=== PATIENT | male | born 1970 | race Caucasian/White ===

== ENCOUNTER → 2022-01-24 | Day surgery (SDC) | payer OTHER ==
[~2022-01-24] VITALS: Ht 172.7 cm; Wt 74.8 kg
[~2022-01-24] MED LIST: LIPITOR40 MG PO; TOPROL XL200 MG PO
[2022-01-24 07:12] LABS: BASOPHIL 0.5 % (0-2); EOSINOPHIL 1.9 % (0-5); HCT 46.5 % (42.0-52.0); LYMPHOCYTE 32.9 % (15-48); MCH 29.8 pg (25.0-31.0); MCHC 34.4 g/dL (32.0-36.0); MCV 86.6 fL (78.0-100.0); MONOCYTE 4.3 % (0-12); MPV 9.5 fL (6.0-9.5); NEUTROPHIL 60.1 % (41-80); NRBC 0; PLT 98 K/uL (150-400); RBC 5.37 M/uL (4.70-6.00); RDW 13.2 % (11.5-14.0); WBC 6.2 K/uL (4.0-10.5)
[2022-01-24 07:34] LABS: BUN/CREAT RATIO (CALC) 9.1 RATIO; CREATININE 1.21 mg/dL (0.67-1.17); POTASSIUM 4.3 mmol/L (3.5-5.1)
== END | disposition home or self-care (01) ==
LOC: FAS 06:28
PROVIDERS: Oral & Maxillofacial Surgery
DX: K02.9 Dental caries, unspecified (principal); K04.7 Periapical abscess without sinus
CPT/HCPCS: D7140 ×9; D7210 ×17; D7310; 36415; 71045; 80048; 85025; 93005; J1100; J1885; J2250; J2405; J2704; J7120